=== PATIENT | female | born 1980 | race Caucasian/White ===

== ENCOUNTER → 2016-08-11 | Outpatient (CLI) | payer OTHER ==
[~2016-08-11] MED LIST: PRENATAL1 TA1 PO; PRILOTC PO; SLOW FE45 MG PO; ZYRTEC5 MG PO
== END ==
LOC: COL.RAD 08:00
DX: R35.0 Frequency of micturition (principal); M54.89 Other dorsalgia; D25.9 Leiomyoma of uterus, unspecified

== ENCOUNTER → 2016-11-23 | Outpatient (CLI) | payer OTHER | LOC: COL.RAD 10:00 | DX: M25.851 Other specified joint disorders, right hip (principal); S73.191A Other sprain of right hip, initial encounter | CPT/HCPCS: A9585; J3301; Q9967 ==

== ENCOUNTER → 2019-04-22 | Outpatient (CLI) | payer OTHER ==
[~2019-04-22] MED LIST changes: +DULERA1 AR1 IH; +FLONASEALLERGY NS; +IMITREX100 MG PO; +MONONESSA PO; +PREDNISONE10 MG PO; +PROAIR HFA0.09 MG/AC IH; +SINGULAIR 110 MG/TAB PO; +SPIRIVA RESPIMAT4 GM IH; +XOPENEX HF0.045 MG/A IH
== END ==
LOC: COL.RAD 07:28
DX: G43.109 Migraine with aura, not intractable, without status migrainosus (principal)

== ENCOUNTER → 2021-02-05 | Outpatient (CLI) | payer OTHER | LOC: MC.RAD 08:58 | DX: Z12.31 Encounter for screening mammogram for malignant neoplasm of breast (principal) ==

== ENCOUNTER 2024-01-01 22:27 | Emergency (ER) | payer OTHER ==
[~2024-01-01] VITALS: Ht 167.6 cm; Wt 65.9 kg
[2024-01-01 22:27] VITALS: TEMP 98.3
[2024-01-01 22:58] LABS: HEMATOCRIT 46.6 % (37.0-47.0); HEMOGLOBIN 15.7 g/dl (12.5-16.0); MEAN CELL VOLUME 90 fl (80.0-100.0); MEAN CORPUSCULAR HEMOGLOBIN 30 pg (27-31); MEAN CORPUSCULAR HGB CONC 34 g/dl (33.0-37.0); MEAN PLATELET VOLUME 10.6 fl (7.4-10.4); PLATELET COUNT 386 K/mm3 (130-400); RED BLOOD COUNT 5.16 M/mm3 (4.10-5.30)
[2024-01-01] MEDS ORDERED: Heparin 5,000 UNITS/ML 1 ML VIAL IV PRN (23:00)
[2024-01-01] MEDS ORDERED: Heparin/D5W 250 ML IV SCH (23:00)
[2024-01-01] MEDS ORDERED: Heparin 5,000 UNITS/ML 1 ML VIAL IV ONE (23:00)
[2024-01-01] MEDS ORDERED: Clopidogrel 300 MG DOSE (75 mg x 4 tabs) PO ONE (23:00)
[2024-01-01 23:04] LABS: INR 1.1 (0.8-3.0); PROTHROMBIN TIME 11.9 SECONDS (9.7-12.8)
[2024-01-01 23:07] LABS: PARTIAL THROMBOPLASTIN TIME 28.7 SECONDS (26.0-37.0)
[2024-01-01] MEDS ORDERED: ALDACTONE 100M100 MG PO (23:11)
[2024-01-01] MEDS ORDERED: PEPCID 20MG TAB20 MG PO (23:11)
[2024-01-01] MEDS ORDERED: QULIPTA60 MG PO (23:12)
[2024-01-01 23:13] LABS: ALBUMIN 4.6 g/dL (3.5-5.0); BILIRUBIN,TOTAL 0.4 mg/dL (0.2-1.2); CALCIUM 9.9 mg/dL (8.4-10.2); CREATININE, serum 0.83 mg/dL (0.57-1.11); POTASSIUM 3.4 mEq/L (3.5-4.5); TOTAL PROTEIN 7.9 g/dl (6.2-8.1)
[2024-01-01] MEDS ORDERED: UBRELVY100 MG PO (23:13)
[2024-01-01] MEDS ORDERED: TRULICITY1.5 MG/0.5 SQ (23:13)
[2024-01-01] MEDS ORDERED: CRESTOR 10MG10 MG PO (23:14)
[2024-01-01 23:19] LABS: TROPONIN-I 0.015 ng/mL (0.00-0.033)
[2024-01-01 23:20] LABS: EOSINOPHIL 1 % (0-4); LYMPHOCYTE 47 % (20.0-51.0); NEUTROPHILS 47 % (42.0-75.2); PLATELET ESTIMATE NORMAL (NORMAL)
[2024-01-02 00:15] VITALS: BP 113/86; PULSE 105
== END 2024-01-02 00:15 | disposition short-term general hospital (02) ==
LOC: COL.ER 22:27
PROVIDERS: Emergency Medicine
DX: I21.3 ST elevation (STEMI) myocardial infarction of unspecified site (principal)
CPT/HCPCS: J1644